=== PATIENT | male | born 1965 | race Caucasian/White ===

== ENCOUNTER 2017-04-30 19:35 | Emergency (ER) | payer MEDICAID ==
[~2017-04-30] VITALS: Ht 165.1 cm; Wt 81.0 kg
[2017-04-30 19:43] VITALS: BP 149/77
[2017-04-30] MEDS ORDERED: ASPIRIN 325 MG TAB PO ONE (19:55)
--- NOTE | 2017-04-30 20:00 | NUR ---
AMBULATED TO ER BED OF4
--- NOTE | 2017-04-30 20:05 | NUR ---
PT IS A 51 Y/O MALE WHO PRESENTS TO THE ED C/O OF CHEST PAIN. PT STATES THAT IT OCCURRED 30 MINUTES AGO AND STATES IT IS A 6/10 PAIN. PT STATES IT IS NON-RADIATING SUBSTERNAL SHARP PAIN. PT STATES PAIN IS INTERMITTENT. PT DENIES N/V/D AT THIS TIME. ER MD DR. ARVIZU NOTIFIED. WILL CONTINUE TO MONITOR.
[2017-04-30] MEDS ORDERED: NITROGLYCERIN 0.4 MG TAB SL ONE (20:15)
[2017-04-30] MEDS ORDERED: NACL 0.9% 1,000 ML IV ONE (20:15)
[2017-04-30] MEDS ORDERED: MORPHINE SULFATE 4 MG/ML SYR IVP ONE (20:15)
[2017-04-30 20:44] LABS: BASOPHILS # (AUTO) 0.2 K/uL (0.00-0.22); EOSINOPHILS # (AUTO) 0.1 K/uL (0-0.4); HEMATOCRIT 49.4 % (36-52); HEMOGLOBIN 15.9 g/dL (12.0-18.0); LYMPHOCYTES # (AUTO) 1.7 K/uL (2.0-11.5); MEAN CORPUSCULAR HEMOGLOBIN 29 pg (27-31); MEAN CORPUSCULAR HGB CONC 32 g/dL (33-37); MEAN CORPUSCULAR VOLUME 91 fL (80-94); MONOCYTES # (AUTO) 0.7 K/uL (0.8-1.0); NEUTROPHILS # (AUTO) 4.9 K/uL (1.8-7.7); PLATELET COUNT (AUTO) 300 K/uL (140-450); RED BLOOD CELL COUNT(AUTO) 5.42 MIL/uL (4.20-6.10); RED CELL DISTRIBUTION WIDTH 13.3 % (11.6-13.7); WHITE BLOOD COUNT (AUTO) 7.7 K/uL (4.8-10.8)
[2017-04-30 20:48] LABS: ANION GAP 9.3 (8-16); CARBON DIOXIDE 29.6 mmol/L (21-32); POTASSIUM 3.9 mmol/L (3.5-5.1)
[2017-04-30 20:49] LABS: PROTHROMBIN TIME 10.4 secs (10.8-13.4)
[2017-04-30 20:53] LABS: TOTAL BILIRUBIN 0.3 mg/dL (0.0-1.0)
--- NOTE | 2017-04-30 22:30 | NUR ---
PT RESTING IN BED, VSS, SINUS RHYTHM, FAMILY AT BEDSIDE. AWATING FOR RESULTS. WILL CONT TO MONITOR.
[2017-04-30] MEDS ORDERED: KETOROLAC 30 MG/ML VIAL IVP ONE (23:00)
[2017-04-30 23:30] VITALS: BP 96/57
--- NOTE | 2017-04-30 23:30 | NUR ---
Patient discharged with v/s stable, NORMAL SINUS RHYTHM. Written and verbal after care instructions given and explained. Patient verbalized understanding. Ambulatory with steady gait. All questions addressed prior to discharge. Advised to follow up with PMD FOR REFERAL TO STRESS TEST. PT ADVISED TO RETRUN TO ER IF CHEST PAIN COMES BACK.
== END 2017-04-30 23:30 | disposition home or self-care (01) ==
LOC: MED 19:35
DX: I20.9 Angina pectoris, unspecified (principal)
CPT/HCPCS: 36415; 71010; 80053; 83880; 84484; 85025; 85379; 85610; 85730; 93005; 96361; 96374; 96375; 99285; J1885; J2270; J7030; Q0092

== ENCOUNTER 2018-01-23 19:15 | Emergency (ER) | payer MEDICAID ==
[~2018-01-23] VITALS: Ht 165.1 cm; Wt 78.0 kg
[2018-01-23 19:22] VITALS: BP 122/62
--- NOTE | 2018-01-23 19:26 | NUR ---
PT TAKEN TO BED 9
--- NOTE | 2018-01-23 19:30 | NUR ---
52YO M c/o right side back pain this afternoon, took ibuprofen at home. was lifting a tire at work when the pain started. PT WITH NO OTHER MEDICAL COMPLAINTS. ER MD NOTIFIED med hx: none
--- NOTE | 2018-01-23 19:35 | NUR ---
Patient being evaluated by physician at bedside.
[2018-01-23] MEDS ORDERED: KETOROLAC 60 MG/2 ML VIAL IM ONE (19:40)
--- NOTE | 2018-01-23 20:51 | NUR ---
Patient discharged with v/s stable. Written and verbal after care instructions given and explained. Patient alert, oriented and verbalized understanding of instructions. Ambulatory with steady gait. All questions addressed prior to discharge. ID band removed. Patient advised to follow up with PMD. Rx of NORCO 5/325 MG, NAPROSYN 500 MG given. Patient educated on indication of medication including possible reaction and side effects. Opportunity to ask questions provided and answered.
[2018-01-23 20:52] VITALS: BP 124/83
== END 2018-01-23 20:51 | disposition home or self-care (01) ==
LOC: MED 19:15
DX: M54.5 Low back pain (principal)
CPT/HCPCS: 96372; 99283; J1885

== ENCOUNTER 2019-03-08 18:46 | Emergency (ER) | payer MEDICAID ==
[~2019-03-08] VITALS: Ht 165.1 cm; Wt 81.6 kg
[2019-03-08 18:55] VITALS: BP 138/80
--- NOTE | 2019-03-08 19:30 | NUR ---
PATIENT LEFT WITHOUT BEING SEEN BY DR. VALENTE. NO FURTHER CARE PROVIDED FOR PATIENT.
== END 2019-03-08 19:30 | disposition left against medical advice (07) ==
LOC: MED 18:46
DX: S61.411A Laceration without foreign body of right hand, initial encounter (principal); Z53.21 Procedure and treatment not carried out due to patient leaving prior to being seen by health care provider; W27.8XXA Contact with other nonpowered hand tool, initial encounter; Y93.89 Activity, other specified; Y92.89 Other specified places as the place of occurrence of the external cause; Y99.8 Other external cause status